=== PATIENT | male | born 1950 | race African-American/Black ===

== ENCOUNTER 2017-05-16 09:29 | Outpatient (CLI) | payer BC ==
[2017-05-16 10:16] LABS: ALT (SGPT) 32 U/L (8-55); AST (SGOT) 29 U/L (5-34); Alkaline Phosphatase 104 U/L (40-150); Anion Gap 14 mmol/L (10-20); BUN (Urea Nitrogen) 20 mg/dL (8.4-25.7); Bilirubin, Direct 0.1 mg/dL (0.1-0.3); Bilirubin, Total 0.3 mg/dL (0.2-1.2); Calc. Creatinine Clearance 0 mL/min (70-130); Calcium 9.8 mg/dL (7.8-10.44); Carbon Dioxide 26 mmol/L (23-31); Chloride 105 mmol/L (98-107); Estimated GFR-MDRD Greater than 90
--- NOTE | 2017-05-16 12:30 | RAD ---
ABDOMEN 1 VIEW: Date: 05/16/17 HISTORY: Prostate cancer. Bladder stone. COMPARISON: KUB dated 11/09/16. FINDINGS: Lungs are diffusely sclerotic. There are multiple calculi within the urinary bladder. No pathologic fracture. Lumbosacral junction and vertebra with enlargement of the left L5 transverse process with normal art icular with the sacrum. There are numerous phleboliths in the pelvis. No dilated loops of large or small bowel. 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 POS: SERGIO
== END 2017-05-16 09:30 | disposition home or self-care (01) ==
LOC: RAD 09:29
PROVIDERS: ATTEND Urology
DX: C61 Malignant neoplasm of prostate (principal); N21.0 Calculus in bladder; C79.51 Secondary malignant neoplasm of bone
CPT/HCPCS: 36415; 74000; 80048; 80076; 84153; 87086

== ENCOUNTER 2017-06-08 13:14 | Outpatient (CLI) | payer BC, MEDICARE ==
[2017-06-08 14:52] LABS: Bilirubin Negative (Negative); Blood, Urine Negative (Negative); Glucose, Urine (Dipstick) Negative (Negative); Ketone, Urine Negative (Negative); Mean Platelet Volume 8.4 fL (7.4-10.4); Nitrite Negative (Negative); Protein, Urine (Dipstick) Negative (Neg-Trace); Red Blood Cell (RBC) Count 4.16 mill/uL (4.70-6.10); White Blood Cell (WBC) Count 9.1 thou/uL (4.8-10.8)
[2017-06-08 14:54] LABS: Bacteria/HPF None Seen HPF (None Seen); Hyaline Casts/LPF 0-3 HYALINE CAST LPF (0-3 Hyaline); Squamous Epithelial 0-3 HPF (0-3); WBC/HPF 0-3 HPF (0-3)
[2017-06-08 15:04] LABS: RBC/HPF None Seen HPF (0-3)
[2017-06-08 15:05] LABS: Prothrombin Time 12.9 SEC (12.0-14.7)
[2017-06-08 15:06] LABS: PTT 29.9 SEC (22.9-36.1)
[2017-06-08 15:10] LABS: Anion Gap 14 mmol/L (10-20); BUN (Urea Nitrogen) 19 mg/dL (8.4-25.7); Calc. Creatinine Clearance 0 mL/min (70-130); Calcium 9.5 mg/dL (7.8-10.44); Carbon Dioxide 28 mmol/L (23-31); Chloride 104 mmol/L (98-107); Estimated GFR-MDRD 83
--- NOTE | 2017-06-12 08:45 | EKG ---
Test Reason : Blood Pressure : / mmHG Vent. Rate : 066 BPM Atrial Rate : 066 BPM P-R Int : 172 ms QRS Dur : 094 ms QT Int : 424 ms P-R-T Axes : 056 -28 -04 degrees QTc Int : 444 ms Normal sinus rhythm Moderate voltage criteria for LVH, may be normal variant Borderline ECG No previous ECGs available Confirmed by Norm FOREMAN ([id number]) on 06/12/2017 8:44:58 AM Referred By: ZOE Confirmed By:Norm FOREMAN
== END 2017-06-08 13:15 | disposition home or self-care (01) ==
LOC: LABBT 13:14
PROVIDERS: ATTEND Urology
DX: Z01.818 Encounter for other preprocedural examination (principal); C61 Malignant neoplasm of prostate; N21.0 Calculus in bladder; Z88.0 Allergy status to penicillin; Z88.8 Allergy status to other drugs, medicaments and biological substances
CPT/HCPCS: 80048; 81001; 85027; 85610; 85730; 87086; 93005; 93010

== ENCOUNTER 2017-06-28 10:17 | Outpatient (CLI) | payer BC, MEDICARE | END 2017-06-28 10:18 | disposition home or self-care (01) | LOC: LABBT 10:17 | PROVIDERS: ATTEND Urology | DX: Z01.812 Encounter for preprocedural laboratory examination (principal); C61 Malignant neoplasm of prostate; R33.9 Retention of urine, unspecified; N21.0 Calculus in bladder | CPT/HCPCS: 86850; 86900; 86901 ==

== ENCOUNTER 2017-06-29 06:04 | Observation (INO) | payer BC, MEDICARE ==
[2017-06-08 13:49] VITALS: BMI 28.1
[2017-06-29] MEDS ORDERED: Levofloxacin 500 mg/D5W 100 ml Premix Bag ONE (06:30)
[2017-06-29] MEDS ORDERED: Iothalamate Meglumine 60% 50 ML VIAL FS ONE (06:37)
[2017-06-29] MEDS ORDERED: Fentanyl 100 MCG/2 ML VIAL ONE ×3 (07:08→10:40)
[2017-06-29] MEDS ORDERED: HYDROcodone/Acetaminophen 10/325 mg Tablet PO PRN ×3 (10:03→10:09)
[2017-06-29] MEDS ORDERED: diphenhydrAMINE 50 MG/ML VIAL IVP PRN (10:03)
[2017-06-29] MEDS ORDERED: hydrALAZINE 20 MG/ML VIAL SLOW IVP PRN ×3 (10:03→13:59)
[2017-06-29] MEDS ORDERED: Mag-Al 1200 mg/1200 mg/30 ML UDCUP PO PRN (10:03)
[2017-06-29] MEDS ORDERED: Acetaminophen 500 MG TAB PO PRN (10:03)
[2017-06-29] MEDS ORDERED: Bisacodyl 10 MG SUPP PR PRN (10:03)
[2017-06-29] MEDS ORDERED: Promethazine HCl 25 MG/ML VIAL IM PRN (10:06)
[2017-06-29] MEDS ORDERED: Ondansetron HCl/PF 4 MG/2 ML Vial IVP PRN (10:06)
[2017-06-29] MEDS ORDERED: Morphine Sulfate 2 MG/ML SYRINGE SLOW IVP PRN (10:06)
[2017-06-29] MEDS ORDERED: Promethazine HCl 25 MG/ML VIAL SLOW IVP PRN (10:06)
[2017-06-29] MEDS ORDERED: traMADol HCl 50 MG TAB PO PRN (10:09)
[2017-06-29] MEDS ORDERED: guaiFENesin ER 600 MG TAB PO PRN ×2 (10:09→14:01)
[2017-06-29] MEDS ORDERED: Tamsulosin HCl 0.4 MG CAP PO SCH (10:15)
[2017-06-29] MEDS ORDERED: hydrALAZINE 20 MG/ML VIAL SLOW IVP SCH (10:30)
--- NOTE | 2017-06-29 10:30 | OP ---
DATE OF PROCEDURE: 06/29/2017 PREOPERATIVE DIAGNOSES: 1. A 67-year-old male with Inga score 4+5, Stage D metastatic prostate cancer. 2. History of chronic incomplete void, trilobar hyperplasia of the prostate. 3. History of incomplete emptying with PVR average 200 mL. 4. History of 2 large bladder stones, 1.2 cm, 2.1 cm on prior imaging. POSTOPERATIVE DIAGNOSES: 1. A 67-year-old male with Inga score 4+5, Stage D metastatic prostate cancer. 2. History of chronic incomplete void, trilobar hyperplasia of the prostate. 3. History of incomplete emptying with PVR on average 200 mL. 4. History of 2 large bladder stones, 1.2 cm, 2.1 cm on prior imaging. PROCEDURE: Cystoscopy, laser lithotripsy of bladder stones, Channel transurethral resection of prostate. SURGEON: Sil Bran D.O. ANESTHESIA: General. COMPLICATIONS: None apparent. ESTIMATED BLOOD LOSS: Less than 150 mL. IV FLUIDS: 1500 mL. DRAINS: 22-Syrian 30 mL three-way Paul catheter with 40 mL instilled in the balloon on light traction with continuous bladder irrigation. DISPOSITION: To the recovery room in stable condition. INDICATIONS FOR PROCEDURE AND HISTORY: Mr. Ott is a 67-year-old male who initially presented with PSA of 412 found to have Inga score 4+5, 6 out of 6 cores positive. He initially presented with postvoid residual of 250, has not had any significant issues of recurrent UTI. He does have 2 large bladder stones, with history of incomplete void. I had previously informed the patient regarding options of TURP, laser lithotripsy of bladder stone any he has deferred surgery on multiple occasions. He presents today to proceed with laser lithotripsy of bladder stone, TURP. The patient has been treated with chemotherapy in the past, Taxotere chemotherapy was completed back in February 2016, currently on Zytiga (abiraterone) per Med/Onc. He continues to work and be active in his community. The patient is ambulatory without assistance. He has had no issues with acute cystitis. However, due to 2 large bladder stones we discussed treatment for his bladder stone and he desired to proceed. Risks and complications including, but not limited to, bleeding, pain , infection, injury to adjacent organs, urosepsis, bladder or urethral injury, bladder neck contracture, stricture disease, clot retention, PE, DVT, perioperative morbidity and mortality was reviewed with him in detail and he desired to proceed. DESCRIPTION OF THE PROCEDURE: After an informed consent is signed, the patient is taken to the operating room, placed in a dorsal lithotomy position with the genital area prepped and draped in the usual surgical sterile fashion. A 21- Syrian cystoscope was utilized, which demonstrated trilobar hyperplasia of the prostate with no gross evidence of urethral stricture. There was an intravesical median lobe component, obstructing in nature. The UOs were far away, away from the area to be resected. Again, 2 large spiculated bladder stones were seen. There was no evidence of bladder tumors. No significant diverticulum or cellulae formation was noted. Using 1000 micron laser fiber at a dust setting, we laser lithotripsy of the bladder stone into multiple tiny pieces. Using an Ellik evacuator we evacuated all stone debris. When the stone treatment was complete, I did transition to a 26-Syrian resectoscope continuous sheath with a visual obturator. This was passed to the level of the bladder. We then proceeded to perform transurethral resection of the prostate in a classic Kamar fashion using gyrus bipolar. I initially resected a median lobe component first. As expected due to his prostate cancer the tissue was lobular, it did appear to have more vascularity than expected, given that he has been on Lupron. With resection of the median lobe, I then proceeded to perform lateral lobe to the prostate. A channel TURP was performed with the bladder neck wide open. I did not aggressively resect especially the apical region as he does have history of advanced prostate cancer. Good hemostasis was obtained, line of resection was proximal to the verumontanum. At the end of the procedure, his bladder neck appeared patent and wide, all prostatic chips were evacuated with the Ellik evacuator with good hemostasis. A 22 Syrian three -way Paul catheter passed without difficulty, 30 mL was insufflated and a total of 40 mL was instilled into the bladder and placed on light traction with clear irrigation. He will be observed overnight. Pending his CBI urine output we will initiate voiding trial. We will monitor overnight. CONNER
[2017-06-29 10:38] LABS: Mean Platelet Volume 8.4 fL (7.4-10.4); Red Blood Cell (RBC) Count 4.45 mill/uL (4.70-6.10); White Blood Cell (WBC) Count 10.7 thou/uL (4.8-10.8)
[2017-06-29] MEDS ORDERED: Morphine 4 MG/ML VIAL SLOW IVP PRN ×2 (10:45)
[2017-06-29 10:58] LABS: Anion Gap 12 mmol/L (10-20); BUN (Urea Nitrogen) 15 mg/dL (8.4-25.7); Calc. Creatinine Clearance 136 mL/min (70-130); Carbon Dioxide 30 mmol/L (23-31); Chloride 101 mmol/L (98-107); Estimated GFR-MDRD Greater than 90
[2017-06-29 11:05] LABS: Band 3 % (5-11); Neutrophil 29 % (42-75); Reactive Lymphocytes 4 % (0-10)
[2017-06-29] MEDS ORDERED: Tamsulosin HCl 0.4 MG CAP ONE (11:21)
[2017-06-29] MEDS ORDERED: Amlodipine 5 MG TAB PO SCH (14:00)
[2017-06-29] MEDS ORDERED: Eucerin (Mineral Oil/Petrolatum,White) 30 gm Jar TOP PRN (14:01)
[2017-06-29] MEDS ORDERED: Diabetic Tussin 200 MG/10 ML UDCUP PO PRN (14:01)
[2017-06-29] MEDS ORDERED: Polyethylene Glycol 3350 17 GM Packet PO PRN (14:01)
[2017-06-29] MEDS ORDERED: NIFEdipine XL 30 MG TAB PO SCH ×3 (14:15→21:00)
[2017-06-29] MEDS ORDERED: PHENYLEPHRINE-NS 100 MCG/ML 10 ML SYRINGE ONE (16:26)
[2017-06-29] MEDS ORDERED: Glycopyrrolate 0.2 MG/ML 5 ML SYRINGE ONE (16:26)
[2017-06-29] MEDS ORDERED: Ondansetron HCl/PF 4 MG/2 ML Vial ONE (16:26)
[2017-06-29] MEDS ORDERED: Propofol 200 MG/20 ML VIAL ONE (16:26)
[2017-06-29] MEDS ORDERED: Losartan 25 MG TAB PO SCH (16:30)
--- NOTE | 2017-06-29 16:56 | PDOC.PN ---
- Subjective Encounter Start Date: 06/29/17 Encounter Start Time: 14:00 Patient seen and examined. Consult for elevated BP. s/p TURP. Does not take BP meds at home. Echo in [address] Peoples EF 65% with no ischemia on stress echo. h/o Prostate Ca s/p chemo. - Objective MAR Reviewed: Yes Vital Signs & Weight: Vital Signs (12 hours) Pulse BP 06/29/17 14:54 97 174/95 H Weight Weight 225 lb Result Diagrams: 06/29/17 10:28 06/29/17 10:28 EKG Reviewed by me: Yes (SR, LVH) Phys Exam - Physical Examination Constitutional: NAD Respiratory: no wheezing, no rhonchi Cardiovascular: RRR, no rub Gastrointestinal: soft, non-tender, positive bowel sounds Musculoskeletal: no edema Neurological: non-focal, moves all 4 limbs Psychiatric: normal affect, A&O x 3 Dx/Plan - Plan DVT proph w/SCDs IMPRESSION: 1. HTN uncontrolled - no evidence of end organ damage PLAN: * Start Procardia XL 30 mg BID with Losartan (Hold for SBP <120) * Cont PRN Hydralazine * Vitals Q4h * If BP stays uncontrolled - may need w/u for secondary htn. * Full code. Makes his own decision with the help of his family. * Thank you for this consultation. Will follow Review of Systems - Review of Systems Constitutional: negative: Fever, Chills, Sweats, Weakness, Malaise, Other Respiratory: negative: Cough, Dry, Shortness of Breath, Hemoptysis, SOB with Excertion, Pleuritic Pain, Sputum, Wheezing Cardiovascular: negative: Chest Pain, Palpitations, Orthopnea, Paroxysmal Noc. Dyspnea, Edema, Light Headedness - Medications/Allergies Allergies/Adverse Reactions: Allergies Allergy/AdvReac Type Severity Reaction Status Date / Time Penicillins Allergy Verified 06/08/17 13:49 Medications: Current Medications Acetaminophen (Tylenol) 500 mg PO Q4H PRN PRN Reason: JEWELL/Fever > 101F/mild pain(1-3) Hydrocodone Bitart/Acetaminophen ([place] 10/325) 1 tab PO Q4H PRN PRN Reason: Moderate Pain (4-6) Hydrocodone Bitart/Acetaminophen ([place] 10/325) 2 tab PO Q4H PRN PRN Reason: Severe Pain (7-10) Al Hydroxide/Mg Hydroxide (Maalox) 30 ml PO Q4H PRN PRN Reason: Indigestion Bisacodyl (Dulcolax) 10 mg [place] DAILYPRN PRN PRN Reason: Constipation Diphenhydramine HCl (Benadryl) 25 mg IVP Q6H PRN PRN Reason: Itching Docusate Sodium (Colace) 100 mg PO BID [facility] Famotidine (Pepcid) 20 mg SLOW IVP Q12HR [place] Guaifenesin (Robitussin Sf) 200 mg PO Q4H PRN PRN Reason: Cough Guaifenesin (Mucinex) 600 mg PO Q12HR PRN PRN Reason: Cough Hydralazine HCl (Apresoline) 20 mg SLOW IVP Q4H PRN PRN Reason: SBP greater than 160/100 Hydralazine HCl (Apresoline) 10 mg SLOW IVP Q4H PRN PRN Reason: SBP Greater Than 180 Sodium Chloride (Normal Saline 0.9%) 1,000 mls @ 100 mls/hr IV .Q10H [facility] Levofloxacin 500 mg/ Device 100 mls @ 100 mls/hr IVPB 0600 [facility] Losartan Potassium (Cozaar) 25 mg PO DAILY [facility] Losartan Potassium (Cozaar) 25 mg PO NOW [facility] Stop: 06/29/17 18:30 Mineral Oil/White Petrolatum (Eucerin Cream) 0 gm TOP BIDPRN PRN PRN Reason: Dry Skin Morphine Sulfate (Morphine) 2 mg SLOW IVP Q2H PRN PRN Reason: MOD PAIN 4-6 Morphine Sulfate (Morphine) 4 mg SLOW IVP Q2H PRN PRN Reason: SEVERE PAIN 7-10 Nifedipine (Procardia Xl) 30 mg PO BID [facility] (Abiraterone Acetate ([Zytiga] 250 Mg Tab) 4 each PO DAILY [facility] Polyethylene Glycol (Miralax) 17 gm PO DAILY PRN PRN Reason: Constipation Prednisone (Prednisone) 5 mg PO BID [facility] Sodium Chloride (Flush - Normal Saline) 10 ml IVF PRN PRN PRN Reason: Saline Flush Tamsulosin HCl (Flomax) 0.4 mg PO DAILY [facility] Tramadol HCl (Ultram) 50 mg PO Q6HR PRN PRN Reason: Pain
[2017-06-29] MEDS: Sodium Chloride 0.9% 1,000 ML IV SCH ×2 (18:53→20:09)
[2017-06-29] MEDS ORDERED: PREDNISONE PO SCH (21:00)
[2017-06-29] MEDS: Docusate 100 MG CAP PO SCH (21:06)
[2017-06-29] MEDS: Famotidine/PF 20 mg/2ml Vial SLOW IVP SCH (21:07)
[2017-06-29] MEDS: predniSONE 5 MG TAB PO SCH (21:07)
[2017-06-30] MEDS: Sodium Chloride 0.9% 1,000 ML IV SCH (05:29)
[2017-06-30 06:01] LABS: #Monocytes 0.8 thou/uL (0.11-0.59); #Neutrophils 7.3 thou/uL (1.40-6.50); %Basophils 0.4 % (0.0-1.0); %Eosinophils 0.5 % (0.0-10.0); %Lymphocytes 19.6 % (21.0-51.0); %Monocytes 8.1 % (0.0-10.0); Hematocrit 42.5 % (42.0-52.0); Mean Platelet Volume 8.9 fL (7.4-10.4); Red Blood Cell (RBC) Count 4.66 mill/uL (4.70-6.10); White Blood Cell (WBC) Count 10.2 thou/uL (4.8-10.8)
[2017-06-30 06:15] LABS: Anion Gap 11 mmol/L (10-20); BUN (Urea Nitrogen) 10 mg/dL (8.4-25.7); Calc. Creatinine Clearance 150 mL/min (70-130); Calcium 8.8 mg/dL (7.8-10.44); Carbon Dioxide 27 mmol/L (23-31); Chloride 104 mmol/L (98-107); Estimated GFR-MDRD Greater than 90
[2017-06-30] MEDS ORDERED: ABIRATERONE ACETATE 250 MG PO SCH (09:00)
[2017-06-30] MEDS ORDERED: Amlodipine 5 MG TAB PO SCH (09:00)
[2017-06-30] MEDS ORDERED: NIFEdipine XL 30 MG TAB PO SCH ×2 (09:00)
[2017-06-30] MEDS ORDERED: Losartan 25 MG TAB PO SCH (09:00)
[2017-06-30] MEDS ORDERED: Tamsulosin HCl 0.4 MG CAP PO SCH (09:00)
[2017-06-30] MEDS: Docusate 100 MG CAP PO SCH (09:06)
[2017-06-30] MEDS: predniSONE 5 MG TAB PO SCH (09:07)
[2017-06-30] MEDS: Famotidine/PF 20 mg/2ml Vial SLOW IVP SCH (09:07)
--- NOTE | 2017-06-30 11:47 | PRG ---
DATE OF SERVICE: 06/30/2017 INPATIENT PROGRESS NOTE SUBJECTIVE: The patient is doing well, resting comfortably. PHYSICAL EXAMINATION: VITAL SIGNS: Demonstrates currently 98.3, pulse 68, respiratory rate 17, blood pressure 151/71. CBI has been held this morning per my orders demonstrating clear yellow urine. ABDOMEN: Soft, nontender, and nondistended. EXTREMITIES: No cyanosis, clubbing or edema or calf tenderness. PERTINENT LABORATORY DATA: White count 10, hemoglobin stable at 13, platelets 208, creatinine 0.7. IMPRESSION AND PLAN: Mr. Ott is a 67-year-old -Mong[place] male with metastatic stage D prostate cancer chemo hormone refractory, with history of BPH , incomplete void, two large bladder stones. Postoperative day #1 status post laser lithotripsy of 2 bladder stones, channel TURP. Catheter removed this morning for a voiding trial, we will monitor voiding status. Informed patient that he might be discharged with indwelling Paul catheter if postvoid residual is of concern. Patient out of bed, we will Hep-Lock IV, increase water consumption. Hospitalist consultation was obtained yesterday due to postop hypertension. Patient did have hypertension even prior to surgery. He has been put on Procardia-XL and losartan. We will discuss with Hospitalist regarding discharge BP medications. He will need close followup with his PCP for blood pressure medication adjustment. Disposition, pending afternoon rounds. CONNER
--- NOTE | 2017-06-30 12:21 | PDOC.PN ---
- Subjective Encounter Start Date: 06/30/17 Encounter Start Time: 08:45 Subjective: no sob/chest pain. Is amb in room -: urine blood tinge sligtly, no clots -: feels good - Objective MAR Reviewed: Yes Vital Signs & Weight: Vital Signs (12 hours) Temp Pulse Resp BP BP Pulse Ox 06/30/17 08:10 97.7 F 75 18 143/79 H 95 06/30/17 04:41 98.3 F 68 17 151/71 H 98 06/30/17 03:03 72 20 139/64 06/30/17 00:35 66 20 146/57 H Weight Weight 225 lb I&O: 06/29/17 06/30/17 07/01/17 06:59 06:59 06:59 Intake Total 1330 Output Total 3050 Balance -1720 Result Diagrams: 06/30/17 05:24 06/30/17 05:24 Phys Exam - Physical Examination HEENT: PERRLA, moist MMs Neck: no JVD, supple Respiratory: no wheezing, no rales Cardiovascular: RRR, no significant murmur Gastrointestinal: soft, non-tender, positive bowel sounds Musculoskeletal: no edema, pulses present Neurological: non-focal, moves all 4 limbs Psychiatric: A&O x 3 Dx/Plan (1) Prostate cancer Code(s): C61 - MALIGNANT NEOPLASM OF PROSTATE Status: Chronic Comment: s/p turp 06/29/2017 (2) HTN (hypertension) Code(s): I10 - ESSENTIAL (PRIMARY) HYPERTENSION Status: Acute Qualifiers: Hypertension type: essential hypertension Qualified Code(s): I10 - Essential (primary) hypertension (3) Calculus, urinary bladder Code(s): N21.0 - CALCULUS IN BLADDER Status: Acute Comment: s/p lithotripsy 06/29/17 - Plan is on procardia xl and cozaar -: to check bp and pulse daily and record to f/u with PCP -: on zytiga with prednisone for prostate ca -: empiric antibiotics on discharge -: dc plan per urology advice * . Review of Systems - Medications/Allergies Allergies/Adverse Reactions: Allergies Allergy/AdvReac Type Severity Reaction Status Date / Time Penicillins Allergy Verified 06/29/17 17:43 Medications: Current Medications Acetaminophen (Tylenol) 500 mg PO Q4H PRN PRN Reason: JEWELL/Fever > 101F/mild pain(1-3) Hydrocodone Bitart/Acetaminophen ([place] 10/325) 1 tab PO Q4H PRN PRN Reason: Moderate Pain (4-6) Hydrocodone Bitart/Acetaminophen ([place] 10/325) 2 tab PO Q4H PRN PRN Reason: Severe Pain (7-10) Last Admin: 06/29/17 21:16 Dose: 2 tab Al Hydroxide/Mg Hydroxide (Maalox) 30 ml PO Q4H PRN PRN Reason: Indigestion Bisacodyl (Dulcolax) 10 mg [place] DAILYPRN PRN PRN Reason: Constipation Diphenhydramine HCl (Benadryl) 25 mg IVP Q6H PRN PRN Reason: Itching Docusate Sodium (Colace) 100 mg PO BID [facility] Last Admin: 06/30/17 09:06 Dose: 100 mg Famotidine (Pepcid) 20 mg SLOW IVP Q12HR [facility] Last Admin: 06/30/17 09:07 Dose: 20 mg Guaifenesin (Robitussin Sf) 200 mg PO Q4H PRN PRN Reason: Cough Guaifenesin (Mucinex) 600 mg PO Q12HR PRN PRN Reason: Cough Hydralazine HCl (Apresoline) 20 mg SLOW IVP Q4H PRN PRN Reason: SBP greater than 160/100 Hydralazine HCl (Apresoline) 10 mg SLOW IVP Q4H PRN PRN Reason: SBP Greater Than 180 Last Admin: 06/29/17 16:56 Dose: 10 mg Levofloxacin 500 mg/ Device 100 mls @ 100 mls/hr IVPB 0600 [facility] Last Admin: 06/30/17 05:28 Dose: 100 mls Losartan Potassium (Cozaar) 25 mg PO DAILY [facility] Last Admin: 06/30/17 09:06 Dose: 25 mg Mineral Oil/White Petrolatum (Eucerin Cream) 0 gm TOP BIDPRN PRN PRN Reason: Dry Skin Morphine Sulfate (Morphine) 2 mg SLOW IVP Q2H PRN PRN Reason: MOD PAIN 4-6 Morphine Sulfate (Morphine) 4 mg SLOW IVP Q2H PRN PRN Reason: SEVERE PAIN 7-10 Nifedipine (Procardia Xl) 30 mg PO BID [facility] Last Admin: 06/30/17 09:07 Dose: 30 mg (Abiraterone Acetate ([Zytiga] 250 Mg Tab) 4 each PO DAILY [facility] Polyethylene Glycol (Miralax) 17 gm PO DAILY PRN PRN Reason: Constipation Prednisone (Prednisone) 5 mg PO BID [facility] Last Admin: 06/30/17 09:07 Dose: 5 mg Sodium Chloride (Flush - Normal Saline) 10 ml IVF PRN PRN PRN Reason: Saline Flush Last Admin: 06/29/17 21:07 Dose: 10 ml Tamsulosin HCl (Flomax) 0.4 mg PO DAILY [facility] Last Admin: 06/30/17 09:07 Dose: 0.4 mg Tramadol HCl (Ultram) 50 mg PO Q6HR PRN PRN Reason: Pain
[2017-06-30 16:17] VITALS: BP 137/74; TEMP 98.2
--- NOTE | 2017-07-01 01:20 | DIS ---
DATE OF ADMISSION: 06/29/2017 DATE OF DISCHARGE: 06/30/2017 DISPOSITION: To home with self-care. FOLLOWUP: 1. follow up appointment next Tuesday07/06/2017 at 11:30 a.m. for voiding trial. 2. Follow up with primary care next week for blood pressure check. [facility]. BRIEF HOSPITAL COURSE: Mr. Ott is a 67-year-old male with stage D metastatic prostate cancer with known history of BPH, too large bladder stones. He has a baseline postvoid residual on average approximately 200 mL, he has deferred channel TURP, laser lithotripsy of bladder stones on multiple occasions. He presented yesterday to proceed with surgical intervention. Surgery was uneventful. He was able to laser lithotripsy of stones complete, a channel TURP was performed uneventfully. His labs are stable with no significant hematuria, CBI was held this morning, underwent voiding trial. He has been voiding spontaneously and increments of 200-300 mL, bladder scan; however, demonstrated 400-500 mL of post-void residual. Urine output is adalid, clear. I informed the patient to be prudent to discharge him with an indwelling Paul catheter for repeat voiding trial next week. He was seen by the Hospitalist per my request, as his blood pressure systolic was variable from 146-192. He was asymptomatic. Denies chest pain or shortness of breath. His blood pressure did improve with the addition of losartan and Procardia per Hospitalist and had been provided a blood pressure monitoring device at home. I did conference with his PCP, we will see him next week for blood pressure assessment. He is surgically stable to be discharged home. ACTIVITY: No heavy lifting over 10-20 pounds, no straddling. The patient may shower. DISCHARGE MEDICATIONS: Include Procardia-XL 30 mg 1 p.o. b.i.d. #20, Cozaar 25 mg one p.o. daily #20, [place] 10/325, 40 pills prescription was provided, Colace #30, 1 p.o. b.i.d., Azo p.r.n., BP monitoring device RX provided by Hospitalist, ciprofloxacin 500 mg one p.o. b.i.d. for 7 days. The patient is to resume his Flomax for now and new prescription also provided. CONDITION: Stable. MTDD
[2017-07-04 17:12] LABS: CA Oxalate Monohydrate 85 % (.); CA Phosphate 15 % (.); Color Tan (.)
== END 2017-06-30 17:30 | disposition home or self-care (01) ==
LOC: SDC 06:04 → SURG B 10:03
PROVIDERS: ADMIT Urology; ATTEND Urology
PROC: 0TCB8ZZ Extirpation of Matter from Bladder, Via Natural or Artificial Opening Endoscopic (ICD-10-PCS; principal; 2017-06-29)
PROC: 0TTC8ZZ Resection of Bladder Neck, Via Natural or Artificial Opening Endoscopic (ICD-10-PCS; 2017-06-29)
DX: C61 Malignant neoplasm of prostate (principal); N21.0 Calculus in bladder; R33.9 Retention of urine, unspecified; R35.0 Frequency of micturition; R31.29 Other microscopic hematuria; R60.0 Localized edema; N28.1 Cyst of kidney, acquired; F17.200 Nicotine dependence, unspecified, uncomplicated; Z88.0 Allergy status to penicillin; Z88.1 Allergy status to other antibiotic agents; Z79.899 Other long term (current) drug therapy; Z87.898 Personal history of other specified conditions
CPT/HCPCS: 36415; 80048; 82365; 85025; 88300; 88305; 96361; 96374; 96375; 96376; G0378; J0360; J1956; J2405; J2704; J3010; Q9961; S0028

== ENCOUNTER 2017-10-07 08:21 | Outpatient (CLI) | payer BC, MEDICARE ==
--- NOTE | 2017-10-07 10:41 | CT ---
CT THORAX UTILIZING LOW DOSE LUNG CANCER SCREENING PROTOCOL WITHOUT IV CONTRAST: INDICATIONS: A 67-year-old male with a 50+ pack-year smoking history, currently smoking. FINDINGS: Linear scarring is present within the right upper lobe. There is scattered central lobular emphysema . There is a subpleural 3 mm pulmonary nodule within the right middle lobe. There are some areas of subsegmental volume loss within the lateral segment of the right middle lobe. No suspicious pulmona ry nodule is identified. There are vascular calcifications involving the thoracic aorta and coronary arteries. The visualized upper abdomen demonstrates no definite acute osseous abnormality. There are numerous osteoblastic lesions seen throughout the ribs and thoracic spine. This was seen o n a prior bone scan dated 10/27/[address] of the abdomen and pelvis dated 10/27/2016. IMPRESSION: 1. Lung-RADS category 2--Benign. Recommend annual low dose CT lung cancer screening evaluation. 2. Mild scarring within the right upper lobe, with a small subpleural, 3 mm pulmonary nodule within the right middle lobe. 3. Osseous metastatic disease seen diffusely throughout the ribs, thoracic spine, and visualized pro ximal appendicular skeleton. POS: SERGIO
== END 2017-10-07 08:22 | disposition home or self-care (01) ==
LOC: CT 08:21
PROVIDERS: ATTEND Family Medicine
DX: Z12.2 Encounter for screening for malignant neoplasm of respiratory organs (principal); F17.210 Nicotine dependence, cigarettes, uncomplicated; Z00.00 Encounter for general adult medical examination without abnormal findings; J98.4 Other disorders of lung; R91.1 Solitary pulmonary nodule; C79.51 Secondary malignant neoplasm of bone
CPT/HCPCS: G0297

== ENCOUNTER 2018-10-11 08:28 | Outpatient (CLI) | payer BC, MEDICARE ==
--- NOTE | 2018-10-11 09:15 | CT ---
FLow dose CT chest HISTORY: Patient with history 40 year history of smoking low dose CT scan chest. Comparison made to previous exam from 10/07/2017. Low-dose CT scan chest is performed. Coronary artery calcifications seen. Aortic calcification seen. There is a 3 mm ill-defined area of density in the right middle lobe stable and unchanged since the p revious exam seen on axial image #36. There is also a tiny approximately 1 to 2 mm nodular density se en on axial image #28 adjacent to a tiny bleb. This also was present on the previous exam and is unch anged. Areas of lung parenchymal scarring seen in the right upper lobe. No newly developed masses or lesions seen. CT appearance is stable. Extensive osseous blastic lesions seen compatible with metastatic disease. These appear to been prese nt on numerous previous exams and are stable. IMPRESSION: 1. Lung rads category 2-benign appearance or behavior-continue annual screening low dose CT 1 year.
== END 2018-10-11 08:29 | disposition home or self-care (01) ==
LOC: CT 08:28
PROVIDERS: ATTEND Family Medicine
DX: F17.210 Nicotine dependence, cigarettes, uncomplicated (principal)
CPT/HCPCS: G0297

== ENCOUNTER 2019-07-05 10:39 | Outpatient (CLI) | payer BC, MEDICARE ==
--- NOTE | 2019-07-05 14:44 | NM ---
WHOLE BODY BONE SCAN: HISTORY: Prostate cancer with bone metastases RADIOPHARMACEUTICAL: 30 mCi technetium 99m-MDP injected intravenously COMPARISON:10/27/2016, 04/23/2016 CORRELATION: LDCT of the chest dated 10/11/2018 FINDINGS: Diffuse heterogeneity in the axial skeleton with patchy areas of increased activity in the ribs, ster num, scapulae, spine, pelvis and proximal femurs is again seen. There scattered degenerative activity in the appendicular skeleton. Tracer excretion through the kidneys is within normal limits. IMPRESSION: Stable osseous metastatic disease.
== END 2019-07-05 10:40 | disposition home or self-care (01) ==
LOC: NM 10:39
PROVIDERS: ATTEND Internal Medicine Medical Oncology
DX: C79.51 Secondary malignant neoplasm of bone (principal); C61 Malignant neoplasm of prostate
CPT/HCPCS: 78306; A9503

== ENCOUNTER 2019-07-13 08:30 | Outpatient (CLI) | payer BC, MEDICARE ==
[2019-07-13 08:55] LABS: Estimated GFR-MDRD - POC Greater than 90
--- NOTE | 2019-07-13 11:12 | CT ---
CT OF THE ABDOMEN AND PELVIS WITH AND WITHOUT IV CONTRAST: INDICATION: History of prostate cancer, renal cyst, and bladder stone. COMPARISON: Prior CT of the abdomen and pelvis with contrast dated 10/27/2016. FINDINGS: The lung bases are clear. The small hepatic cysts are stable-appearing. The gallbladder, adrenal glands, and pancreas are normal-appearing. The spleen is normal-appearing. There has been interval decrease in size of the largest renal cyst involving the superior pole of the right kidney now measuring 3.6 cm where previously it measured 4.8 cm. Other renal cysts are stable -appearing. No hydronephrosis is evident. No solid renal lesion is evident. No gross urothelial le chacha is identified. There is no visible bladder stone. There is mild wall thickening involving the bladder. The prostate measures 4.4 cm. Unopacified large and small bowel are within normal limits. There is mild ectasia of the infrarenal abdominal aorta which is relatively stable measuring 2.7 cm. The mildly prominent right external iliac lymph node is decreased in size now measuring 3.7 x 9 mm wh ere previously it measured 5.2 x 8.1 mm. There is stable diffuse osseous metastatic disease. IMPRESSION: 1. Stable osseous metastatic disease. 2. Interval decrease in size of the right external iliac lymph node. 3. Wall thickening involving the bladder may reflect the sequelae of prior therapy, chronic bladder outlet obstruction, or mild cystitis. 4. Bilateral renal cysts. 5. Hepatic cysts. POS: TPC
== END 2019-07-13 08:31 | disposition home or self-care (01) ==
LOC: BICCT 08:30
PROVIDERS: ATTEND Urology
DX: C61 Malignant neoplasm of prostate (principal); N28.1 Cyst of kidney, acquired; C79.51 Secondary malignant neoplasm of bone; K76.89 Other specified diseases of liver; N32.89 Other specified disorders of bladder; Z87.448 Personal history of other diseases of urinary system
CPT/HCPCS: 74178; 82565

== ENCOUNTER 2019-08-08 08:57 | Outpatient (CLI) | payer BC, MEDICARE ==
--- NOTE | 2019-08-08 12:17 | MRI ---
MRI THORACIC SPINE WITH AND WITHOUT CONTRAST: HISTORY: Malignant neoplasm of prostate. CORRELATION: CT from 07/13/2019. Correlation was made to a CT chest from 10/11/2018 which also confirmed diffuse sclerotic metastatic disease in all visualized thoracic and lumbar vertebrae, as well as the sternum and ribs. FINDINGS: Bone windows show diffuse bony sclerosis involving the visualized lower thoracic and lumbar spine, in dicating diffuse bony sclerotic metastatic disease. The thoracic vertebrae maintain height and alignment. Diffuse central heterogeneity is seen involving all visualized thoracic vertebrae, consistent with the previous CT findings of diffuse sclerotic met astatic disease. There is no edema seen on STIR sequence and there is no significant enhancement on p ost contrast studies. There are scattered patchy areas of enhancement seen in the visualized ribs and some posterior element enhancement seen on sagittal post contrast images. No evidence of disk protrusion. No central canal stenosis. Thoracic cord signal appears normal. IMPRESSION: Correlation with prior CT scans confirm diffuse sclerotic metastatic disease to the thoracic and lumb ar spine. MRI shows diffuse heterogeneous signal throughout the visualized thoracic vertebrae. Verteb ral body height is preserved. No significant enhancement or edema is seen on MRI. The lack of enhance ment would indicate chronic sclerotic metastatic disease without a significant blastic component. POS: SERGIO
--- NOTE | 2019-08-08 12:21 | RAD ---
LEFT FEMUR 4 VIEWS: Date: 08/08/2019 HISTORY: Bone pain. History of metastatic prostate metastasis. FINDINGS: Visualized bones, including the left hemipelvis and left femur, show abnormal sclerosis consistent wi th sclerotic prostatic bone metastasis. There is no evidence of acute fracture. Femur involvement treasure ears primarily proximal and mid. The distal femur cortex and density is more normal in appearance. IMPRESSION: Abnormal mottled sclerosis involving the visualized left hemipelvis and proximal left femur consisten t with known sclerotic metastatic disease. No acute fracture. POS: SERGIO
--- NOTE | 2019-08-08 12:27 | MRI ---
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 CORRELATION: Prior CT of abdomen dated 07/13/2019. FINDINGS: The visualized lumbar vertebrae show diffuse sclerotic metastatic involvement. The lumbar vertebrae maintain height and alignment. The visualized lumbar vertebrae show diffuse hete rogeneous signal, consistent with the CT findings of diffuse sclerotic metastatic involvement. There is no significant edema seen on the STIR sequence. There is no significant enhancement on post contrast images. At L1-L2 there is a mild disk bulge flattening the thecal sac. Facet and ligamentous hypertrophy resu lts in moderate central canal stenosis. At L2-L3 a broad-based disk protrusion compresses the thecal sac. There is associated facet hypertrop hy. Moderate to severe central canal stenosis. Bilateral foraminal stenosis. At L3-L4 diffuse disk bulge combined with facet hypertrophy results in moderate to severe central can al stenosis. At L4-L5 broad-based disk protrusion with more prominent central protrusion compresses the thecal sac . Facet hypertrophy. Severe central canal stenosis. Bilateral foraminal stenosis. At L5-S1 no significant central canal or foraminal stenosis. IMPRESSION: 1. Abnormal mild signal throughout all the visualized lumbar vertebrae, consistent with the known his tory of diffuse sclerotic metastatic disease. 2. Disk bulge/protrusions are prominent at L2-L3, L3-L4 and L4-L5, resulting in central canal and for aminal stenosis at these levels, as described above. POS: SERGIO
[2019-08-08] MEDS ORDERED: Magnevist 469MG/ML 20 ML VIAL ONE ×2 (15:57)
== END 2019-08-08 08:58 | disposition home or self-care (01) ==
LOC: BICMRI 08:57
PROVIDERS: ATTEND Internal Medicine Medical Oncology
DX: C61 Malignant neoplasm of prostate (principal); C79.51 Secondary malignant neoplasm of bone; M79.605 Pain in left leg; M89.8X8 Other specified disorders of bone, other site; M48.061 Spinal stenosis, lumbar region without neurogenic claudication
CPT/HCPCS: 72157; 72158; A9579

== ENCOUNTER 2020-01-10 09:25 | Outpatient (CLI) | payer BC, MEDICARE ==
--- NOTE | 2020-01-10 14:45 | NM ---
WHOLE BODY BONE SCAN: HISTORY: Prostate cancer with bone metastases RADIOPHARMACEUTICAL: 30 mCi technetium 99m-MDP injected intravenously COMPARISON:07/05/2019 CORRELATION: CT abdomen pelvis dated 07/13/2019 FINDINGS: Diffuse heterogeneity in the axial skeleton with patchy areas of increased activity in the ribs, ster num, scapulae, spine, pelvis and proximal femurs is again seen. There is interval worsening of disease in the left proximal femur. There scattered degenerative activity in the appendicular skeleton. Tracer excretion through the kidneys is within normal limits. IMPRESSION: Osseous metastatic disease with interval worsening.
== END 2020-01-10 09:26 | disposition home or self-care (01) ==
LOC: NM 09:25
PROVIDERS: ATTEND Internal Medicine Medical Oncology
DX: C61 Malignant neoplasm of prostate (principal); C79.51 Secondary malignant neoplasm of bone
CPT/HCPCS: 78306; A9503

== ENCOUNTER 2020-05-22 16:00 | Outpatient (CLI) | payer BC, MEDICARE ==
--- NOTE | 2020-05-22 16:38 | CT ---
CT THORAX NONCONTRAST: Low dose screening exam DATE: 05/22/2020 HISTORY: 70-year-old male smoker presents for lung cancer screening. COMPARISON: 10/07/2017 FINDINGS: Again noted are the innumerable sclerotic lesions throughout all osseous structures. Thoracic vertebral body heights are maintained. Ectasia and tortuosity of thoracic aorta without aneurysm. No cardiomegaly, pleural effusion, or pneumothorax. Apical segment right upper lobe pulmonary scar, unchanged. The previously described tiny, approximate ly 3 mm pulmonary nodule in the anterior segment of right upper lobe close to the minor fissure and close to the anterolateral pleural surface, is benign and unchanged. Similar tiny nodule in right middle lobe very close to the anterior pleural surface, is also benign a nd unchanged. No new pulmonary nodules. No suspicious pulmonary nodules. No interval change IMPRESSION: 1) lung RADS category 2-benign appearance. (Less than 1% chance of malignancy). 2) recommend continued annual low dose screening CT.
== END 2020-05-22 16:01 | disposition home or self-care (01) ==
LOC: BICCT 16:00
PROVIDERS: ATTEND Family Medicine
DX: Z12.2 Encounter for screening for malignant neoplasm of respiratory organs (principal); F17.210 Nicotine dependence, cigarettes, uncomplicated
CPT/HCPCS: 80053; 82248; 83615; 84100; 84153; 84550; G0297

== ENCOUNTER 2020-06-19 09:22 | Outpatient (CLI) | payer BC, MEDICARE ==
--- NOTE | 2020-06-19 09:51 | RAD ---
Exam: XR Hip Lt 2-3 View HISTORY: Secondary malignant neoplasm of bone. History of prior radiation therapy. COMPARISON: Views left femur on 08/08/2019 FINDINGS: Again noted is the lytic lesion involving the greater trochanter overall similar to prior study. The mixed lytic and sclerotic appearance involving the left hemipelvis as well as visualized medial aspect of the right pubic bone are seen and likely attributable to metastatic disease. Findings invol ving the left hemipelvis and left proximal femur do not appear to have significantly progressed when compared to the prior exam. No fracture or dislocation is identified. Vascular calcifications ar e seen in the iliac and femoral arteries. IMPRESSION: Mixed lytic and sclerotic process involving the left hemipelvis and proximal left femur similar to pr ior study and compatible with patient's known metastatic disease.
== END 2020-06-19 09:23 | disposition home or self-care (01) ==
LOC: BICRAD 09:22
PROVIDERS: ATTEND Internal Medicine Medical Oncology
DX: M25.552 Pain in left hip (principal); C79.51 Secondary malignant neoplasm of bone; C61 Malignant neoplasm of prostate
CPT/HCPCS: 36415; 80053; 82248; 83615; 84100; 84153; 84550

== ENCOUNTER 2020-08-29 22:41 | Emergency (ER) | payer BC, MEDICARE | END 2020-08-29 23:26 | disposition home or self-care (01) | LOC: ERS 22:41 | DX: I88.9 Nonspecific lymphadenitis, unspecified (principal); E78.5 Hyperlipidemia, unspecified; I10 Essential (primary) hypertension; F17.210 Nicotine dependence, cigarettes, uncomplicated | CPT/HCPCS: 99283 ==

== ENCOUNTER 2020-10-02 11:35 | Outpatient (CLI) | payer BC, MEDICARE | END 2020-10-02 11:36 | disposition home or self-care (01) | LOC: BICRAD 11:35 | PROVIDERS: ATTEND Radiology Radiation Oncology | DX: M25.532 Pain in left wrist (principal) ==

== ENCOUNTER 2020-10-29 13:15 | Outpatient (CLI) | payer BC, MEDICARE | END 2020-10-29 13:16 | disposition home or self-care (01) | LOC: BICRAD 13:15 | PROVIDERS: ATTEND Family Medicine | DX: S52.512A Displaced fracture of left radial styloid process, initial encounter for closed fracture (principal); M79.89 Other specified soft tissue disorders; R93.7 Abnormal findings on diagnostic imaging of other parts of musculoskeletal system ==

== ENCOUNTER 2020-10-29 23:37 | Emergency (ER) | payer BC, MEDICARE ==
[2020-10-30] MEDS ORDERED: Fluorescein Opthalmic Strip ONE (00:02)
[2020-10-30] MEDS ORDERED: Bupivacaine 0.5% 10 ML VIAL ONE (00:02)
[2020-10-30] MEDS ORDERED: Proparacaine 0.5% Opth 15 ML BOT ONE (00:02)
== END 2020-10-30 00:29 | disposition home or self-care (01) ==
LOC: ERS 23:37
DX: H10.12 Acute atopic conjunctivitis, left eye (principal); H11.422 Conjunctival edema, left eye; E78.5 Hyperlipidemia, unspecified; I10 Essential (primary) hypertension; F17.210 Nicotine dependence, cigarettes, uncomplicated
CPT/HCPCS: 99282; J3490

== ENCOUNTER 2020-12-10 11:03 | Outpatient (CLI) | payer BC, MEDICARE | END 2020-12-10 11:04 | disposition home or self-care (01) | LOC: BICRAD 11:03 | PROVIDERS: ATTEND Family Medicine | DX: S52.512A Displaced fracture of left radial styloid process, initial encounter for closed fracture (principal) ==

== ENCOUNTER 2020-12-22 14:04 | Outpatient (CLI) | payer BC, MEDICARE | END 2020-12-22 14:05 | disposition home or self-care (01) | LOC: BICULT 14:04 | PROVIDERS: ATTEND Family Medicine | DX: R09.89 Other specified symptoms and signs involving the circulatory and respiratory systems (principal); I65.21 Occlusion and stenosis of right carotid artery | CPT/HCPCS: 93880 ==

== ENCOUNTER 2020-12-23 15:12 | Outpatient (CLI) | payer BC, MEDICARE | END 2020-12-23 15:13 | disposition home or self-care (01) | LOC: BICMRI 15:12 | PROVIDERS: ATTEND Internal Medicine Medical Oncology | DX: C61 Malignant neoplasm of prostate (principal); C79.51 Secondary malignant neoplasm of bone; S52.515A Nondisplaced fracture of left radial styloid process, initial encounter for closed fracture ==

== ENCOUNTER 2021-04-27 09:37 | Outpatient (CLI) | payer BC, MEDICARE | END 2021-04-27 09:38 | disposition home or self-care (01) | LOC: NM 09:37 | PROVIDERS: ATTEND Internal Medicine Medical Oncology | DX: C79.51 Secondary malignant neoplasm of bone (principal); C61 Malignant neoplasm of prostate; R11.2 Nausea with vomiting, unspecified | CPT/HCPCS: 78306; A9503 ==

== ENCOUNTER 2021-05-11 09:13 | Outpatient (CLI) | payer BC, MEDICARE ==
[2021-05-11] MEDS ORDERED: Iopamidol 370 76% 100 ML VIAL ONE (09:27)
== END 2021-05-11 09:14 | disposition home or self-care (01) ==
LOC: CT 09:13
PROVIDERS: ATTEND Internal Medicine Medical Oncology
DX: C61 Malignant neoplasm of prostate (principal); M89.8X5 Other specified disorders of bone, thigh
CPT/HCPCS: 71260; 74177; Q9967

== ENCOUNTER 2021-09-21 09:09 | Outpatient (CLI) | payer BC, MEDICARE | END 2021-09-21 09:10 | disposition home or self-care (01) | LOC: NM 09:09 | PROVIDERS: ATTEND Internal Medicine Medical Oncology | DX: C61 Malignant neoplasm of prostate (principal); C79.51 Secondary malignant neoplasm of bone; R11.2 Nausea with vomiting, unspecified | CPT/HCPCS: 78306; A9503 ==

== ENCOUNTER 2021-11-28 17:16 | Emergency (ER) | payer BC, MEDICARE ==
[2021-11-28] MEDS ORDERED: predniSONE 20 MG TAB ONE (17:50)
== END 2021-11-28 18:02 | disposition home or self-care (01) ==
LOC: ERS 17:16
DX: L04.0 Acute lymphadenitis of face, head and neck (principal); I10 Essential (primary) hypertension; E78.5 Hyperlipidemia, unspecified; F17.210 Nicotine dependence, cigarettes, uncomplicated; Z85.46 Personal history of malignant neoplasm of prostate; Z79.899 Other long term (current) drug therapy
CPT/HCPCS: 99283; J7512

== ENCOUNTER 2022-02-08 08:59 | Outpatient (CLI) | payer BC, MEDICARE | END 2022-02-08 09:00 | disposition home or self-care (01) | LOC: NM 08:59 | PROVIDERS: ATTEND Internal Medicine Medical Oncology | DX: C61 Malignant neoplasm of prostate (principal); C79.51 Secondary malignant neoplasm of bone; R97.20 Elevated prostate specific antigen [PSA] | CPT/HCPCS: 78306; A9503 ==

== ENCOUNTER 2022-08-17 11:00 | Outpatient (CLI) | payer BC, MEDICARE | END 2022-08-17 11:01 | disposition home or self-care (01) | LOC: PET 11:00 | PROVIDERS: ATTEND Internal Medicine Medical Oncology | DX: C79.51 Secondary malignant neoplasm of bone (principal); C61 Malignant neoplasm of prostate | CPT/HCPCS: 78815; A9552 ==

== ENCOUNTER 2022-10-14 08:23 | Day surgery (SDC) | payer BC, MEDICARE ==
[2022-10-14 08:50] LABS: PTT 28.6 sec (22.9-36.1); Prothrombin Time 13.4 sec (12.0-14.7)
[2022-10-14 08:53] LABS: #Basophils 0.1 thou/uL (0.0-0.2); #Eosinphils 0.1 thou/uL (0.0-0.7); #Lymphocytes 3.4 thou/uL (1.20-3.40); #Monocytes 0.7 thou/uL (0.11-0.59); #Neutrophils 5.5 thou/uL (1.40-6.50); %Basophils 0.8 % (0.0-1.0); %Eosinophils 1.5 % (0.0-10.0); %Lymphocytes 34.4 % (21.0-51.0); %Monocytes 7.6 % (0.0-10.0); %Neutrophils 55.8 % (42.0-75.0); Mean Corpuscular HGB CONC 32.8 g/dL (32.0-36.0); Mean Corpuscular Hemoglobin 30.3 pg (27.0-31.0); Mean Corpuscular Volume 92.5 fl (78.0-98.0); Mean Platelet Volume 8.2 fL (7.4-10.4); Platelet Count 255 10x3/uL (130-400); RBC Distribution Width 14.4 % (11.5-14.5); Red Blood Cell (RBC) Count 4.28 mill/uL (4.70-6.10); White Blood Cell (WBC) Count 9.8 10x3/uL (4.8-10.8)
[2022-10-14 09:42] VITALS: BP 133/72; TEMP 97.6
== END 2022-10-14 12:30 | disposition home or self-care (01) ==
LOC: CT 08:23
PROVIDERS: ATTEND Internal Medicine Medical Oncology
PROC: 0QB33ZX Excision of Left Pelvic Bone, Percutaneous Approach, Diagnostic (ICD-10-PCS; principal; 2022-10-14)
DX: M89.8X8 Other specified disorders of bone, other site (principal); C61 Malignant neoplasm of prostate; G62.9 Polyneuropathy, unspecified; F17.200 Nicotine dependence, unspecified, uncomplicated; Z79.52 Long term (current) use of systemic steroids; Z79.899 Other long term (current) drug therapy; Z88.0 Allergy status to penicillin
CPT/HCPCS: 20225; 77012; 85025; 85610; 85730; 88307; 88311; 88341; 88342

== ENCOUNTER 2023-03-07 09:07 | Outpatient (CLI) | payer BC, MEDICARE | END 2023-03-07 09:08 | disposition home or self-care (01) | LOC: NM 09:07 | PROVIDERS: ATTEND Internal Medicine Medical Oncology | DX: C79.51 Secondary malignant neoplasm of bone (principal); C61 Malignant neoplasm of prostate; M25.559 Pain in unspecified hip; R93.7 Abnormal findings on diagnostic imaging of other parts of musculoskeletal system | CPT/HCPCS: 72170; 78306; A9503 ==

== ENCOUNTER 2023-03-25 11:21 | Outpatient (CLI) | payer BC, MEDICARE | END 2023-03-25 11:22 | disposition home or self-care (01) | LOC: SCSMRI 11:21 | PROVIDERS: ATTEND Radiology Radiation Oncology | DX: C79.51 Secondary malignant neoplasm of bone (principal) ==

== ENCOUNTER 2023-04-28 09:48 | Day surgery (SDC) | payer BC, MEDICARE ==
[2023-04-27 10:53] VITALS: BMI 28.1
[2023-04-28] MEDS ORDERED: Clindamycin/D5W 900 mg/50 ml Premix Bag ONE (11:04)
[2023-04-28] MEDS ORDERED: LevoFLOXacin 500 mg/D5W 100 ML BAG ONE (11:04)
[2023-04-28] MEDS ORDERED: Fentanyl 250 MCG/5 ML VIAL ONE (11:58)
[2023-04-28] MEDS ORDERED: Dexamethasone 20 MG/5 ML VIAL ONE (12:00)
[2023-04-28] MEDS ORDERED: PROPOFOL 200 MG/20 ML VIAL ONE (12:00)
[2023-04-28] MEDS ORDERED: Ketorolac Tromethamine 30 MG/ML VIAL ONE (12:00)
[2023-04-28] MEDS ORDERED: Lidocaine 1% PF 5 ML VIAL ONE (12:00)
[2023-04-28] MEDS ORDERED: Ondansetron PF 4 MG/2 ML Vial ONE (12:00)
[2023-04-28] MEDS ORDERED: PHENYLEPHRINE-NS 100 MCG/ML 10 ML SYRINGE ONE (12:00)
[2023-04-28] MEDS ORDERED: HYDROmorphone 2 MG/ML VIAL ONE (12:38)
[2023-04-28] MEDS ORDERED: Dexmedetomidine 200 MCG/2 ML VIAL ONE (13:27)
[2023-04-28] MEDS ORDERED: fentaNYL 50 mcg/mL 1 mL Vial ONE ×2 (13:28→14:00)
[2023-04-28] MEDS ORDERED: HYDROcodone/Acetaminophen 10/325 mg Tablet ONE (15:20)
== END 2023-04-28 15:56 | disposition home or self-care (01) ==
LOC: SDC 09:48
PROVIDERS: ATTEND Orthopaedic Surgery
PROC: 0QS606Z Reposition Right Upper Femur with Intramedullary Internal Fixation Device, Open Approach (ICD-10-PCS; principal; 2023-04-28)
DX: S72.24XA Nondisplaced subtrochanteric fracture of right femur, initial encounter for closed fracture (principal); C61 Malignant neoplasm of prostate; F17.210 Nicotine dependence, cigarettes, uncomplicated; N40.1 Benign prostatic hyperplasia with lower urinary tract symptoms; R31.29 Other microscopic hematuria; Z98.890 Other specified postprocedural states; Z79.899 Other long term (current) drug therapy; Z88.0 Allergy status to penicillin; X58.XXXA Exposure to other specified factors, initial encounter
CPT/HCPCS: 93005; 93010; C1713; J1100; J1170; J1885; J1956; J2405; J2704; J3010; J3490

== ENCOUNTER 2023-09-21 15:26 | Observation (INO) | payer BC, MEDICARE ==
[~2023-09-21 15:26] MED LIST: Iopamidol-370 76% 500 ML MDV (1 ML CHARGE) ONE
[2023-09-21 16:30] LABS: #Monocytes 0.8 thou/uL (0.11-0.59); #Neutrophils 6.1 thou/uL (1.40-6.50); %Basophils 0.3 % (0.0-1.0); %Eosinophils 0.4 % (0.0-10.0); %Lymphocytes 26.7 % (21.0-51.0); %Monocytes 8.2 % (0.0-10.0); %Neutrophils 63.6 % (42.0-75.0); Hematocrit 29.5 % (42.0-52.0); Hemoglobin 9.3 g/dL (14.0-18.0); Mean Corpuscular HGB CONC 31.5 g/dL (32.0-36.0); Mean Corpuscular Volume 79.3 fl (78.0-98.0); Mean Platelet Volume 9.5 fL (7.4-10.4); Platelet Count 471 10x3/uL (130-400); RBC Distribution Width 17.9 % (11.5-14.5); Red Blood Cell (RBC) Count 3.72 mill/uL (4.70-6.10); White Blood Cell (WBC) Count 9.6 10x3/uL (4.8-10.8)
[2023-09-21 16:47] LABS: ALT (SGPT) 9 U/L (8-55); AST (SGOT) 21 U/L (5-34); Albumin 3.8 g/dL (3.4-4.8); Alkaline Phosphatase 221 U/L (40-110); Anion Gap 19 mmol/L (10-20); BUN (Urea Nitrogen) 24 mg/dL (8.4-25.7); Bilirubin, Total 0.3 mg/dL (0.2-1.2); Calc. Creatinine Clearance 0 mL/min (70-130); Calcium 9.1 mg/dL (7.8-10.44); Carbon Dioxide 25 mmol/L (23-31); Chloride 99 mmol/L (98-107); Estimated GFR 95; Globulin 3.1 g/dL (2.4-3.5); Glucose 118 mg/dL (83-110); Potassium 4.3 mmol/L (3.5-5.1); Protein, Total 6.9 g/dL (5.8-8.1); Sodium 139 mmol/L (136-145)
[2023-09-21 16:50] LABS: Troponin I 0.058 ng/mL (< 0.028)
[2023-09-21] MEDS ORDERED: Ondansetron PF 4 MG/2 ML Vial ONE (17:59)
[2023-09-21 19:14] LABS: Actual Bicarbonate (HCO3a) 25.9 mEq/L (22-28); Analyzer IN Cardio ER; Base Excess (BEa) 1.4 mEq/L (-2.0 to +3.0); CO2 Tension 40.4 mmHg (35.0-45.0); Calcium, Ionized (arterial) 1.13 mmol/L (1.12-1.30); Carboxyhemoglobin (COHb) 2.2 gm% (0.0-3.0); Hematocrit-ABG 26 % (42.0-52.0); O2 Tension (PaO2), arterial 62.6 mmHg (> 70.0); Potassium - ABG Lab 3.62 mmol/L (3.70-5.30); pH, Arterial 7.424 (7.35-7.45)
[2023-09-21 19:25] LABS: Puncture Site LRA
[2023-09-21 23:39] VITALS: BMI 23.1
[2023-09-22] MEDS ORDERED: Aspirin 325 MG TAB ONE ×2 (00:01→08:29)
[2023-09-22] MEDS ORDERED: Ketorolac Tromethamine 30 MG (1 mL) VIAL ONE (00:01)
[2023-09-22] MEDS: Sodium Chloride 0.9% 250 ML IV SCH (00:09)
[2023-09-22] MEDS: Aspirin 325 MG TAB PO SCH (00:13)
[2023-09-22] MEDS: Ketorolac Tromethamine 30 MG (1 mL) VIAL IVP SCH (00:14)
[2023-09-22] MEDS: Sodium Chloride 0.9% 1,000 ML IV SCH (00:14)
[2023-09-22 00:34] LABS: Troponin I 0.026 ng/mL (< 0.028)
[2023-09-22 02:16] LABS: Troponin I 0.051 ng/mL (< 0.028)
[2023-09-22] MEDS ORDERED: HYDROcodone/Acetaminophen 10/325 mg Tablet ONE ×2 (05:58→13:55)
[2023-09-22] MEDS: HYDROcodone/Acetaminophen 10/325 mg Tablet PO SCH (06:03)
[2023-09-22] MEDS ORDERED: HYDROcodone/Acetaminophen 10/325 mg Tablet PO PRN (08:15)
[2023-09-22] MEDS ORDERED: Atorvastatin Calcium 40 MG TAB ONE (08:28)
[2023-09-22] MEDS: Atorvastatin Calcium 40 MG TAB PO SCH (08:45)
[2023-09-22] MEDS: Aspirin 325 mg Enteric Coated Tablet PO SCH (08:45)
[2023-09-22 12:04] VITALS: BP 104/76; TEMP 98.6
[2023-09-22] MEDS: HYDROcodone/Acetaminophen 10/325 mg Tablet PO PRN (13:58)
== END 2023-09-21 22:40 | disposition home or self-care (01) ==
LOC: ERS 15:26 → ERHOLD 22:29
PROVIDERS: ADMIT Hospitalist; ATTEND Internal Medicine
DX: R55 Syncope and collapse (principal); I95.9 Hypotension, unspecified; C61 Malignant neoplasm of prostate; C79.31 Secondary malignant neoplasm of brain; Z88.0 Allergy status to penicillin; Z79.899 Other long term (current) drug therapy
CPT/HCPCS: 36415; 36600; 71046; 71275; 80053; 82550; 82805; 83880; 84484; 85025; 87040; 93005; 94760; 96361; 96374; 96375; G0378; J1885; J2405; J7050; Q9967

== ENCOUNTER 2024-01-10 12:42 | Day surgery (SDC) | payer BC, MEDICARE ==
[2024-01-10] MEDS: Acetaminophen 500 MG TAB PO SCH (13:16)
[2024-01-10] MEDS ORDERED: diphenhydrAMINE 25 MG CAP ONE (13:16)
[2024-01-10] MEDS: diphenhydrAMINE 25 MG CAP PO SCH (13:16)
[2024-01-10] MEDS ORDERED: Acetaminophen 500 MG TAB ONE (13:16)
[2024-01-10 16:18] VITALS: BP 177/82; TEMP 98.3
== END 2024-01-10 15:53 | disposition home or self-care (01) ==
LOC: ONC/OP 12:42
PROVIDERS: ATTEND Nurse Practitioner Adult Health
DX: D64.9 Anemia, unspecified (principal); D69.6 Thrombocytopenia, unspecified
CPT/HCPCS: 36430; 86850; 86900; 86901; P9016

== ENCOUNTER 2024-02-10 07:28 | Outpatient (CLI) | payer BC, MEDICARE ==
[2024-02-10] MEDS ORDERED: Iopamidol 370 76% 100 ML VIAL ONE (12:19)
== END 2024-02-10 07:29 | disposition home or self-care (01) ==
LOC: CT 07:28
PROVIDERS: ATTEND Internal Medicine
DX: C61 Malignant neoplasm of prostate (principal); I71.43 Infrarenal abdominal aortic aneurysm, without rupture; J98.11 Atelectasis; I25.10 Atherosclerotic heart disease of native coronary artery without angina pectoris; C79.51 Secondary malignant neoplasm of bone; J98.4 Other disorders of lung; K76.89 Other specified diseases of liver; N28.1 Cyst of kidney, acquired; N28.89 Other specified disorders of kidney and ureter; I70.8 Atherosclerosis of other arteries; R91.1 Solitary pulmonary nodule
CPT/HCPCS: 71260; 74177; Q9967

== ENCOUNTER 2024-03-06 08:37 | Day surgery (SDC) | payer BC, MEDICARE ==
[2024-03-06] MEDS ORDERED: Acetaminophen 500 MG TAB ONE (08:50)
[2024-03-06] MEDS ORDERED: diphenhydrAMINE 25 MG CAP ONE (08:50)
[2024-03-06] MEDS: Acetaminophen 500 MG TAB PO SCH (08:52)
[2024-03-06] MEDS: diphenhydrAMINE 25 MG CAP PO SCH (08:52)
[2024-03-06 11:37] VITALS: BP 136/61; TEMP 98.1
== END 2024-03-06 11:39 | disposition home or self-care (01) ==
LOC: ONC/OP 08:37
PROVIDERS: ATTEND Internal Medicine
DX: D69.6 Thrombocytopenia, unspecified (principal); D64.9 Anemia, unspecified; Z88.0 Allergy status to penicillin
CPT/HCPCS: 36430; 86850; 86900; 86901; P9016

== ENCOUNTER 2024-04-18 11:53 | Day surgery (SDC) | payer BC, MEDICARE ==
[2024-04-18] MEDS ORDERED: Acetaminophen 500 MG TAB ONE (12:24)
[2024-04-18] MEDS ORDERED: diphenhydrAMINE 25 MG CAP ONE (12:24)
[2024-04-18] MEDS: Acetaminophen 500 MG TAB PO SCH (12:25)
[2024-04-18] MEDS: diphenhydrAMINE 25 MG CAP PO SCH (12:25)
[2024-04-18 14:40] VITALS: BP 131/62; TEMP 98.1
== END 2024-04-18 14:41 | disposition home or self-care (01) ==
LOC: ONC/OP 11:53
PROVIDERS: ATTEND Internal Medicine
DX: D64.9 Anemia, unspecified (principal); D69.6 Thrombocytopenia, unspecified; Z88.0 Allergy status to penicillin
CPT/HCPCS: 36430; 86850; 86900; 86901; P9016

== ENCOUNTER 2024-04-19 12:39 | Day surgery (SDC) | payer BC, MEDICARE ==
[2024-04-19] MEDS ORDERED: Acetaminophen 500 MG TAB ONE (13:02)
[2024-04-19] MEDS: Acetaminophen 500 MG TAB PO SCH (13:12)
[2024-04-19] MEDS ORDERED: diphenhydrAMINE 25 MG CAP PO SCH (13:15)
[2024-04-19 15:58] VITALS: BP 130/60; TEMP 98.6
== END 2024-04-19 15:58 | disposition home or self-care (01) ==
LOC: ONC/OP 12:39
PROVIDERS: ATTEND Internal Medicine
DX: D64.9 Anemia, unspecified (principal); D69.6 Thrombocytopenia, unspecified; Z88.0 Allergy status to penicillin
CPT/HCPCS: 36430; 86850; 86900; 86901; P9016

== ENCOUNTER 2024-05-01 11:08 | Day surgery (SDC) | payer BC, MEDICARE ==
[2024-05-01] MEDS ORDERED: Acetaminophen 500 MG TAB ONE (12:55)
[2024-05-01] MEDS ORDERED: diphenhydrAMINE 25 MG CAP ONE (12:55)
[2024-05-01] MEDS: Acetaminophen 500 MG TAB PO SCH (13:04)
[2024-05-01] MEDS: diphenhydrAMINE 25 MG CAP PO SCH (13:04)
[2024-05-01 14:08] VITALS: TEMP 98
[2024-05-01 16:07] VITALS: BP 144/67
== END 2024-05-01 16:10 | disposition home or self-care (01) ==
LOC: ONC/OP 11:08
PROVIDERS: ATTEND Internal Medicine
DX: D64.9 Anemia, unspecified (principal); D69.6 Thrombocytopenia, unspecified
CPT/HCPCS: 36430; 86850; 86900; 86901; P9016

== ENCOUNTER 2024-05-09 11:48 | Inpatient (IN) | payer BC, MEDICARE ==
[2024-05-09] MEDS ORDERED: Amiodarone 150 MG/3 ML VIAL ONE ×2 (12:24→12:26)
[2024-05-09 12:52] LABS: #Basophils Less than 0.03 10x3/uL (0.0-0.2); #Eosinophils Less than 0.03 10x3/uL (0.0-0.7); %Eosinophils 0.2 % (0.0-10.0); %Monocytes 5.6 % (0.0-10.0); %Neutrophils 66.1 % (42.0-75.0); Hematocrit 21.7 % (42.0-52.0); Hemoglobin 6.8 g/dL (14.0-18.0); Mean Corpuscular HGB CONC 31.3 g/dL (32.0-36.0); Mean Corpuscular Hemoglobin 29.7 pg (27.0-31.0); Mean Corpuscular Volume 94.8 fL (78.0-98.0); Platelet Count 65 10x3/uL (130-400); RBC Distribution Width 18.2 % (11.5-14.5); Red Blood Cell (RBC) Count 2.29 mill/uL (4.70-6.10)
[2024-05-09 12:58] LABS: ALT (SGPT) 8 U/L (8-55); AST (SGOT) 14 U/L (5-34); Albumin 2.4 g/dL (3.4-4.8); Alkaline Phosphatase 392 U/L (40-110); Anion Gap 19 mmol/L (10-20); BUN (Urea Nitrogen) 14 mg/dL (8.4-25.7); Bilirubin, Total 0.4 mg/dL (0.2-1.2); Calc. Creatinine Clearance 0 mL/min (70-130); Calcium 8.9 mg/dL (7.8-10.44); Carbon Dioxide 23 mmol/L (23-31); Chloride 100 mmol/L (98-107); Estimated GFR 96; Globulin 4.4 g/dL (2.4-3.5); Glucose 135 mg/dL (83-110); Magnesium 2.1 mg/dL (1.6-2.6); Potassium 3.4 mmol/L (3.5-5.1); Protein, Total 6.8 g/dL (5.8-8.1); Sodium 139 mmol/L (136-145)
[2024-05-09 14:42] LABS: INR-International Normal Ratio 1.4; PTT 32.4 sec (22.9-36.1); Prothrombin Time 16.9 sec (12.0-14.7)
[2024-05-09] MEDS ORDERED: Prochlorperazine Maleate 5 MG TAB PO PRN (16:42)
[2024-05-09 17:04] VITALS: BMI 19.8
[2024-05-09 18:23] LABS: Troponin I 0.013 ng/mL (< 0.028)
[2024-05-09 19:47] LABS: Troponin I Less than 0.010 ng/mL (< 0.028)
[2024-05-09] MEDS: Famotidine 20 MG TAB PO SCH (20:10)
[2024-05-09] MEDS: HYDROcodone/Acetaminophen 10/325 mg Tablet PO PRN (20:13)
[2024-05-09] MEDS: Mirtazapine 15 MG TAB PO SCH (20:14)
[2024-05-09] MEDS: Morphine ER 30 MG TAB PO SCH (20:17)
[2024-05-09] MEDS: Amiodarone 450 MG in Dextrose 5% in Water 250 ML IVPB SCH (22:23)
[2024-05-09] MEDS: Sodium Chloride 0.9% 1,000 ML IV SCH (22:27)
[2024-05-10 04:59] LABS: Anion Gap 17 mmol/L (10-20); BUN (Urea Nitrogen) 12 mg/dL (8.4-25.7); Calc. Creatinine Clearance 119 mL/min (70-130); Calcium 8.6 mg/dL (7.8-10.44); Carbon Dioxide 20 mmol/L (23-31); Chloride 103 mmol/L (98-107); Estimated GFR 104; Glucose 103 mg/dL (83-110); Potassium 3.2 mmol/L (3.5-5.1); Sodium 137 mmol/L (136-145)
[2024-05-10 05:01] LABS: #Basophils Less than 0.03 10x3/uL (0.0-0.2); #Eosinophils Less than 0.03 10x3/uL (0.0-0.7); %Basophils 0.2 % (0.0-1.0); %Eosinophils 0.2 % (0.0-10.0); %Lymphocytes 24.8 % (21.0-51.0); %Monocytes 8.3 % (0.0-10.0); %Neutrophils 65.4 % (42.0-75.0); Hemoglobin 7.2 g/dL (14.0-18.0); Mean Corpuscular HGB CONC 32.7 g/dL (32.0-36.0); Mean Corpuscular Hemoglobin 29.8 pg (27.0-31.0); Mean Corpuscular Volume 90.9 fL (78.0-98.0); Mean Platelet Volume 10.1 fL (7.4-10.4); Platelet Count 49 10x3/uL (130-400); RBC Distribution Width 17.6 % (11.5-14.5); Red Blood Cell (RBC) Count 2.42 mill/uL (4.70-6.10)
[2024-05-10] MEDS ORDERED: Tamsulosin HCl 0.4 MG CAP PO SCH (09:00)
[2024-05-10 10:47] LABS: Bacteria/HPF None Seen HPF (None Seen); Bilirubin Negative (Negative); Blood, Urine 1+ (Negative); Clarity Clear (Clear); Glucose, Urine (Dipstick) Normal (Negative); Ketone, Urine 10 mg/dL (Negative); Leukocyte Negative Leu/uL (Negative); Nitrite Negative (Negative); Protein, Urine (Dipstick) 20 mg/dL (Neg-Trace); Specific Gravity, Urine 1.036 (1.002-1.036); Squamous Epithelial 0-3 HPF (0-3); Urobilinogen Normal mg/dL (Less than 2); WBC/HPF 0-3 HPF (0-3); pH, Urine 5.5 (5.0-9.0)
[2024-05-10] MEDS: Potassium Chloride 20 MEQ TAB PO SCH (12:42)
[2024-05-11] MEDS: HYDROcodone/Acetaminophen 10/325 mg Tablet PO PRN (00:57)
[2024-05-11] MEDS: Silodosin 4 MG CAP PO SCH (07:58)
[2024-05-11] MEDS: Amiodarone 200 MG TAB PO SCH (20:42)
[2024-05-12 09:42] LABS: Hematocrit 23.6 % (42.0-52.0); Hemoglobin 7.7 g/dL (14.0-18.0); Mean Corpuscular HGB CONC 32.8 g/dL (32.0-36.0); Mean Corpuscular Hemoglobin 29.7 pg (27.0-31.0); Mean Corpuscular Volume 90.7 fL (78.0-98.0); Mean Platelet Volume 9.7 fL (7.4-10.4); Platelet Count 52 10x3/uL (130-400); RBC Distribution Width 17.2 % (11.5-14.5); Red Blood Cell (RBC) Count 2.59 mill/uL (4.70-6.10)
[2024-05-12 09:55] LABS: Anion Gap 15 mmol/L (10-20); BUN (Urea Nitrogen) 6 mg/dL (8.4-25.7); Calc. Creatinine Clearance 133 mL/min (70-130); Calcium 8.4 mg/dL (7.8-10.44); Carbon Dioxide 23 mmol/L (23-31); Chloride 100 mmol/L (98-107); Estimated GFR 106; Glucose 96 mg/dL (83-110); Magnesium 1.8 mg/dL (1.6-2.6); Potassium 3.4 mmol/L (3.5-5.1); Sodium 135 mmol/L (136-145)
[2024-05-12] MEDS: Potassium Chloride 20 MEQ TAB PO SCH (14:41)
[2024-05-13 04:45] LABS: Hematocrit 23.4 % (42.0-52.0); Hemoglobin 7.4 g/dL (14.0-18.0); Mean Corpuscular HGB CONC 31.6 g/dL (32.0-36.0); Mean Corpuscular Hemoglobin 29.7 pg (27.0-31.0); Mean Platelet Volume 9.6 fL (7.4-10.4); Platelet Count 56 10x3/uL (130-400); Red Blood Cell (RBC) Count 2.49 mill/uL (4.70-6.10)
[2024-05-13 04:56] LABS: Anion Gap 14 mmol/L (10-20); BUN (Urea Nitrogen) 9 mg/dL (8.4-25.7); Calc. Creatinine Clearance 131 mL/min (70-130); Calcium 8.4 mg/dL (7.8-10.44); Carbon Dioxide 26 mmol/L (23-31); Chloride 102 mmol/L (98-107); Estimated GFR 105; Glucose 97 mg/dL (83-110); Magnesium 1.8 mg/dL (1.6-2.6); Potassium 3.3 mmol/L (3.5-5.1); Sodium 139 mmol/L (136-145)
[2024-05-13] MEDS: Silodosin 8 MG CAP PO SCH (09:10)
[2024-05-13] MEDS: Potassium Chloride 20 MEQ TAB PO SCH (09:12)
[2024-05-14 08:45] VITALS: TEMP 97.7
[2024-05-14 12:36] VITALS: BP 144/66
== END 2024-05-14 14:26 | disposition home or self-care (01) | DRG 309 ==
LOC: ERS 11:48 → IMCU/EMU 16:55 → 2SE 05-11 20:21
PROVIDERS: ADMIT Internal Medicine; ATTEND Student in an Organized Health Care Education/Training Program
DX: I48.20 Chronic atrial fibrillation, unspecified (principal); C79.51 Secondary malignant neoplasm of bone; N13.8 Other obstructive and reflux uropathy; R64 Cachexia; R31.9 Hematuria, unspecified; C61 Malignant neoplasm of prostate; Z92.21 Personal history of antineoplastic chemotherapy; Z66 Do not resuscitate; Z51.5 Encounter for palliative care; D63.8 Anemia in other chronic diseases classified elsewhere; R53.81 Other malaise; F17.210 Nicotine dependence, cigarettes, uncomplicated; D69.6 Thrombocytopenia, unspecified; E78.5 Hyperlipidemia, unspecified; E87.6 Hypokalemia; N40.1 Benign prostatic hyperplasia with lower urinary tract symptoms; Z92.25 Personal history of immunosuppression therapy; Z88.0 Allergy status to penicillin; Z79.899 Other long term (current) drug therapy; Z68.20 Body mass index [BMI] 20.0-20.9, adult
CPT/HCPCS: 36415; 36430; 71045; 71275; 80048; 80053; 81001; 83735; 83880; 84443; 84484; 85025; 85027; 85379; 85610; 85730; 86850; 86900; 86901; 87086; 93005; 93306; 96374; J0282; J7030; J7070; P9016; Q9967